=== PATIENT | male | born 1970 | race African-American/Black ===

== ENCOUNTER 2017-09-11 09:07 | Emergency (ER) | payer MEDICAID ==
[2017-09-11 09:14] VITALS: TEMP 98.6; O2SAT 97
--- NOTE | 2017-09-11 09:56 | EDPHY ---
H & P Stated Complaint: R foot/ great toe area pain no trauma x 10 days Time Seen by Provider: 09/11/17 09:31 HPI/ROS: CHIEF COMPLAINT: Right 1st MTP pain HISTORY OF PRESENT ILLNESS: The patient presents to the ED with a one-week history of pain in his right 1st MTP joint. The patient denies history of trauma. He recently was diagnosed with borderline diabetes by his report. He reportedly has been increasing his meat intake. He has no history of previously diagnosed gout. The patient denies any additional complaints of arthralgias or fever. The patient denies any additional infectious symptoms of fever, cough or congestion. REVIEW OF SYSTEMS: A comprehensive 10 point review of systems is otherwise negative aside from elements mentioned in the history of present illness. Source: Patient Exam Limitations: No limitations - Personal History Current Tetanus/Diphtheria Vaccine: Unsure Current Tetanus Diphtheria and Acellular Pertussis (TDAP): Unsure - Medical/Surgical History Hx Asthma: No Hx Chronic Respiratory Disease: No Hx Diabetes: No Hx Cardiac Disease: No Hx Renal Disease: No Hx Cirrhosis: No Hx Alcoholism: No Hx HIV/AIDS: No Hx Splenectomy or Spleen Trauma: No Other PMH: denies - Social History Smoking Status: Current some day smoker - Physical Exam Exam: General Appearance: Alert, no distress Neurological: Sensation intact to light touch, 5/5 strength all 4 extremities Skin: Warm and dry, no rashes Musculoskeletal: Neck is supple nontender Extremities: Tenderness to palpation in 1st MTP right foot Constitutional: Initial Vital Signs Temperature (C) 37.0 C 09/11/17 09:12 Heart Rate 58 L 09/11/17 09:12 Respiratory Rate 16 09/11/17 09:12 Blood Pressure 139/77 H 09/11/17 09:12 O2 Sat (%) 97 09/11/17 09:12 O2 Delivery Mode Room Air Allergies/Adverse Reactions: No Known Allergies Allergy (Verified 09/11/17 09:11) Medical Decision Making - Data Points Laboratory Results: Laboratory Results 09/11/17 10:05 09/11/17 10:05 Sodium 140 mEq/L mEq/L (135-145) Potassium 4.4 mEq/L mEq/L (3.5-5.2) Chloride 107 mEq/L mEq/L (97-110) Carbon Dioxide 21 mEq/l L mEq/l (22-31) Anion Gap 12 mEq/L mEq/L (8-16) BUN 15 mg/dL mg/dL (7-23) Creatinine 0.7 mg/dL mg/dL (0.7-1.3) Estimated GFR > 60 Glucose 118 mg/dL H mg/dL (70-100) Uric Acid 7.0 mg/dL mg/dL (3.5-8.5) Calcium 9.7 mg/dL mg/dL (8.5-10.4) Departure - Departure Disposition: Home, Routine, Self-Care Clinical Impression: Gout Condition: Good Instructions: Gout (ED) Additional Instructions: 1. Please take indomethacin as prescribed for gout. Please do not take medications like Aleve, Motrin or ibuprofen while taking indomethacin. 2. Please follow up with your primary care provider as needed.
[2017-09-11 10:42] VITALS: BP 160/99; PULSE 52; RESP 18
== END 2017-09-11 10:42 | disposition home or self-care (01) ==
DX: M10.9 Gout, unspecified (principal); F17.200 Nicotine dependence, unspecified, uncomplicated

== ENCOUNTER 2017-09-20 11:10 | Emergency (ER) | payer MEDICAID ==
--- NOTE | 2017-09-20 13:47 | EDPHY ---
H & P Time Seen by Provider: 09/20/17 11:33 HPI/ROS: Chief complaint: Right great toe pain History of present illness: This is a 47-year-old male who presents to the emergency department for right great toe pain. He was seen in this emergency department 1 week ago and diagnosed with gout. He was started on indomethacin. He has been taking this as prescribed but symptoms persist. He does not feel like it helped. He has had symptoms for a total of 2 weeks. Primarily pain and swelling around the base of the 1st great toe. He denies associated signs or symptoms including no fevers, no red streaking up the leg, no abnormal coolness or paresthesias in the toe. No history of trauma. No other complaints. Smoking Status: Current some day smoker Physical Exam: General: Alert, nontoxic Skin: Mild erythema around the 1st MTP joint. Musculoskeletal: Patient can move the MTP joint and I can passively move it without significant discomfort. He is moving the rest of the digits and ankle well. Vascular: Capillary refill brisk in all digits of the right hand. DP and PT pulses 2+. Neurologic: Sensation intact throughout the right foot. Constitutional: Initial Vital Signs Temperature (C) 36.8 C 09/20/17 11:12 Heart Rate 67 09/20/17 11:12 Respiratory Rate 19 09/20/17 11:12 Blood Pressure 146/86 H 09/20/17 11:12 O2 Sat (%) 97 09/20/17 11:12 O2 Delivery Mode Room Air Allergies/Adverse Reactions: No Known Allergies Allergy (Verified 09/20/17 11:11) Home Medications: Medication Instructions Recorded Indomethacin [Indocin 25 mg (*)] 2 tab PO TID #30 cap 09/11/17 Cephalexin [Keflex] 500 mg PO TID 7 Days cap 09/20/17 MDM/Departure - MDM Imaging Results: Imaging Impressions Foot X-Ray 09/20/17 11:52 Impression: 1. Negative for fracture. 2. Findings at the level of the first metatarsophalangeal articulation that could reflect early gout. Imaging: I viewed and interpreted images myself ED Course/Re-evaluation: Patient seen under the supervision of my secondary supervising physician Dr. Jimmy Bernal. Patient presents to the emergency department for persistent right great toe pain. I still believe this is likely gout. X-ray is supportive of this. My suspicion for significant pathology such as septic arthritis is low given lack of discomfort with ranging and persistent of symptoms. However because of persistence of skin findings I will cover with antibiotics to insure no overlying cellulitis. Home care is discussed. He is to follow up with a primary care doctor or elementary reading specialist for recheck. Return precautions are given. Differential Diagnosis: Included but not limited to gout, pseudogout, right is, bony fracture or joint dislocation, infection - Depart Disposition: Home, Routine, Self-Care Clinical Impression: Foot pain Qualifiers: Laterality: right Qualified Code(s): M79.671 - Pain in right foot Condition: Good Instructions: Metatarsalgia (DC) Additional Instructions: Follow-up with a primary care doctor or elementary reading specialist for continued care If symptoms worsen or new symptoms develop return to the emergency room for recheck Prescriptions: Cephalexin [Keflex] 500 mg PO TID 7 Days cap Referrals: NONE *PRIMARY CARE P,. [Primary Care Provider] - As per Instructions [facility],. [Clinic] - As per Instructions Adelita Hall [Doctor of Podiatric Medicine] - As per Instructions
[2017-09-20 13:53] VITALS: BP 135/85; PULSE 69; RESP 18; TEMP 98.1; O2SAT 98
== END 2017-09-20 13:53 | disposition home or self-care (01) ==
DX: M79.671 Pain in right foot (principal); F17.200 Nicotine dependence, unspecified, uncomplicated